=== PATIENT | male | born 1945 | race Caucasian/White ===

== ENCOUNTER 2017-01-03 00:40 | Emergency (ER) | payer OTHER ==
[2017-01-03 01:08] LABS: BASOPHIL 0.4 % (0-2); EOSINOPHIL 2.4 % (0-7); HGB 11.3 g/dl (13.2-18.0); LYMPHOCYTE 14.5 % (15-48); MCH 29.4 pg (25.0-31.0); MCHC 32.3 g/dL (32.0-36.0); MCV 90.9 fL (78.0-100.0); MONOCYTE 15.9 % (0-12); MPV 9.7 fL (6.0-9.5); NEUTROPHIL 66.8 % (41-80); PLT 209 K/uL (150-400); RBC 3.85 M/uL (4.70-6.00); RDW 16.1 % (11.5-14.0); WBC 8.2 K/uL (4.0-10.5)
[2017-01-03 01:15] LABS: INR 1.11 (0.9-1.2); PROTHROMBIN TIME 13.9 SECONDS (11.7-14.0); PTT 33.4 SECONDS (23.2-31.4)
[2017-01-03 01:24] LABS: ALBUMIN 3.5 g/dL (3.4-4.8); BILIRUBIN - TOTAL 0.3 mg/dL (0.1-1.0); CREATININE 0.7 mg/dL (0.7-1.2); GLOBULIN (CALCULATION) 3.1 g/dL (2.2-4.2); TOTAL PROTEIN 6.6 g/dL (6.4-8.3)
== END 2017-01-03 06:38 | disposition other institution (70) ==
LOC: FER 00:40
PROVIDERS: Emergency Medicine
DX: J90 Pleural effusion, not elsewhere classified (principal); I25.10 Atherosclerotic heart disease of native coronary artery without angina pectoris; I11.9 Hypertensive heart disease without heart failure; J44.9 Chronic obstructive pulmonary disease, unspecified; I48.91 Unspecified atrial fibrillation; Z87.891 Personal history of nicotine dependence; Z79.51 Long term (current) use of inhaled steroids; Z79.899 Other long term (current) drug therapy; Z90.2 Acquired absence of lung [part of]
CPT/HCPCS: 36415; 36600; 71010; 80053; 82803; 85025; 85610; 85730; 87040; 87070; 87205; 93005